=== PATIENT | male | born 1935 | race Caucasian/White ===

== ENCOUNTER 2022-07-15 07:45 | Outpatient (REF) | payer MEDICARE, SELFPAY ==
--- NOTE | ~2022-07-15 | XR_ITS ---
EXAMINATION: XR HIP, LEFT CLINICAL INFORMATION: Left hip pain. COMPARISON: 12/07/2021 TECHNIQUE: AP pelvis and 2 views of the left hip. FINDINGS: AP film of the pelvis does not demonstrate any evidence of acute fracture or diastasis. There is narrowing of the hip joint spaces bilaterally, left greater than right, with prominent collar spurring. There is subchondral cyst formation without definite femoral head collapse but with articular irregularity involving the left femoral head with some mild remodeling. There is significant degenerative disc disease with facet arthropathy seen at the L5-S1 level. There is degenerative disc disease seen at the L5-S1 level with facet arthropathy. Two views of the left hip demonstrate loss of the inferior joint space with marginal sclerosis, spurring, and some articular irregularity. No acute fracture is appreciated. Prominent collar spurring is seen. XR/XR hip LT w PEL1V IMPRESSION: Severe degenerative change of the left hip without significant change in joint space narrowing but with some mildly increased osteopenia from study of December 07, 2021.
== END 2022-07-15 07:46 | disposition home or self-care (01) ==
LOC: HO.HOSX 07:45
PROVIDERS: Visit Provider Physician Assistant
DX: M16.12 Unilateral primary osteoarthritis, left hip (principal)
CPT/HCPCS: 73502; 99202

== ENCOUNTER → 2022-09-12 15:09 | Outpatient (BNVA) | payer MEDICARE, SELFPAY | PROVIDERS: PCP Internal Medicine; Visit Provider Orthopaedic Surgery | DX: Z13.89 Encounter for screening for other disorder (principal) ==

== ENCOUNTER → 2022-09-15 12:49 | Outpatient (BNVA) | payer MEDICARE, SELFPAY | PROVIDERS: Visit Provider Orthopaedic Surgery | DX: M16.12 Unilateral primary osteoarthritis, left hip (principal) | CPT/HCPCS: 99212 ==

== ENCOUNTER → 2022-12-01 11:17 | Outpatient (BNVA) | payer MEDICARE, SELFPAY | PROVIDERS: PCP Internal Medicine; Visit Provider Physician Assistant | DX: Z01.818 Encounter for other preprocedural examination (principal); M16.12 Unilateral primary osteoarthritis, left hip | CPT/HCPCS: 99212 ==

== ENCOUNTER → 2023-01-12 09:50 | Outpatient (BNVA) | payer MEDICARE, SELFPAY | PROVIDERS: PCP Internal Medicine; Visit Provider Physician Assistant | DX: M16.12 Unilateral primary osteoarthritis, left hip (principal) | CPT/HCPCS: 99212 ==

== ENCOUNTER 2023-01-17 09:57 | Inpatient (IN) | payer MEDICARE, SELFPAY ==
[2022-11-28 12:03] VITALS: BMI 26.2
[2022-11-28 12:11] VITALS: BP 125/58; PULSE 58; RESP 16; O2SAT 99
--- NOTE | 2022-11-28 12:20 | P.CONAN_ITS ---
HPI - Anesthesia Eval Consult details Narrative: 87yo M for Left Hip Total Replacement 12/14/22 Pending: Labs, ECHO, EKG PCP cleared (Echo updated) [facility] Active Problems Active Problems: All Active Problems (Updated 11/28/22 @ 12:16 by Ophelia Swift, RN) Osteoarthritis of left hip (Acute) Past Medical History Medical History (Updated 12/01/22 @ 12:07 by Ophelia Swift RN) Ambulates with cane Bilateral tinnitus Dental crowns present Glaucoma History of basal cell cancer Murmur DENISSE (obstructive sleep apnea) PND (post-nasal drip) Family History Family history of problems with anesthesia: No Surgical History Surgical History H/O hernia repair History of nasal surgery Hx of colonoscopy S/P left knee arthroscopy History of Problems with Anesthesia: No Social History Social History Household Members Other:: adult grandson Are you a primary resident care supervisor to a significant other at home: No Do you presently have visiting nurse or other home services: No Tobacco use type: Cigarette Narrative Narrative: No recent illness No CP/SOB within limits of activity. Fatigue. Meds Allergies Allergy/AdvReac Type Severity Reaction Status Date / Time No Known Allergies Allergy Verified 12/01/22 11:24 Home Medications Medication Instructions Recorded Confirmed Last Taken Type timolol maleate 0.5 % eye drops 1 drp ophthalmic (eye) QAM 07/15/22 12/01/22 Unknown History Exam Exam Date and Time: November 28, 2022 1220 Height,Weight and Vital Signs: Height 5 ft 11 in Weight 85.275 kg Last Vital Signs Pulse 58 11/28/22 12:11 Resp 16 11/28/22 12:11 BP 125/58 L 11/28/22 12:11 Pulse Ox 99 11/28/22 12:11 O2 Del Method Room Air 11/28/22 12:11 Airway Mallampati Class: I TM Dist: >3cm Neck ROM: Full Loose/Missing/Broken Teeth: Yes (All pulled except 6 x crowns lower front) Heart: RRR +M Lungs: CTAB Assessment and Plan Assessment Anesthesia Assessment: Anesthesia Plan Discussed and PAT Visit Final Anesthetic Review Family History of Problems with Anesthesia: No History of Problems with Anesthesia: No
[2022-11-28 15:56] LABS: MRSA Nasal PCR NEGATIVE (Negative); SA Nasal PCR POSITIVE (Negative)
--- NOTE | 2023-01-16 08:55 | P.CONAN_ITS ---
Documented by User: Marga Portillo NP 01/16/23 09:02 HPI - Anesthesia Eval Consult details Narrative: 87yo M for Left Hip Total Replacement PCP cleared [facility] Active Problems Active Problems: All Active Problems (Updated 12/01/22 @ 12:07 by Ophelia Swift, RN) Osteoarthritis of left hip (Acute) Past Medical History Medical History (Updated 01/17/23 @ 10:06 by Tammy Marion, JCARLOS) Ambulates with cane Bilateral tinnitus Dental crowns present Glaucoma History of basal cell cancer History of diet-controlled diabetes Murmur DENISSE (obstructive sleep apnea) PND (post-nasal drip) Family History Family history of problems with anesthesia: No Surgical History Surgical History H/O hernia repair History of nasal surgery Hx of colonoscopy S/P left knee arthroscopy History of Problems with Anesthesia: No Social History Social History Household Members Other:: adult grandson Are you a primary neonatal critical care nurse to a significant other at home: No Do you presently have visiting nurse or other home services: No Tobacco use type: Cigarette Use of substances other than those prescribed or required for medical reasons: No Have you been hit, kicked, punched, or otherwise hurt by someone within the past year? If so, by whom?: No Are you DNR?: No Advance Directives: No Advance Directives Information Provided: Yes Advance Directives on File: No Recently lost weight without trying: No Nutrition Risks: Surgical patient >75years Meds Allergies Allergy/AdvReac Type Severity Reaction Status Date / Time No Known Allergies Allergy Verified 01/12/23 09:54 Home Medications Medication Instructions Recorded Confirmed Last Taken Type timolol maleate 0.5 % eye drops 1 drp ophthalmic (eye) QAM 07/15/22 12/01/22 01/17/23 History Exam Exam Date and Time: January 16, 2023 0855 Height,Weight and Vital Signs: Height 5 ft 11 in Weight 85.275 kg Last Vital Signs Pulse 58 11/28/22 12:11 Resp 16 11/28/22 12:11 BP 125/58 L 11/28/22 12:11 Pulse Ox 99 11/28/22 12:11 O2 Del Method Room Air 11/28/22 12:11 Pertinent Lab Results Pertinent Lab Results: Laboratory Tests 11/28/22 12/06/22 12:30 Unknown Nasal Screen MRSA (PCR) NEGATIVE Nasal S. aureus Screen POSITIVE A Nasal MRSA/S.aureus Interp SEE NOTE Blood Type Cancelled Antibody Screen Cancelled CBC and BMP from outside facility 10/2022 WNL Narrative Narrative: EKG 10/2022 SB @ 55 ECHO 11/2022 1. LV size nml 2. LV wall thickness nml 3. LV systolic function is nml with EF 60-65% 4. Indeterminate diastolic function 5. No evidence of wall motion abnormalities 6. LA moderately dilated 7. RV systolic function at low end of nml 8. Moderate AR 9. Moderate . REESE 1.0cm2 10. Mild-mod MR 11. No pulmo htn Nuc stress 11/2022 1. Negative EKG responsee to pharm stress 2. Myocardial perfusion imaging is nml with no evidence of fixed or reversible perfusion defects. 3. Nml wall thickening and wall motion. Nml LV function with a resting LVEF of 50% 4. No evidence of ischemic dilation Assessment and Plan Assessment Anesthesia Assessment: Chart Reviewed Final Anesthetic Review Family History of Problems with Anesthesia: No History of Problems with Anesthesia: No Documented by User: Sandy Rabago MD 01/17/23 11:27 [facility] Past Medical History Medical History (Updated 01/17/23 @ 10:06 by Tammy Marion, JCARLOS) Ambulates with cane Bilateral tinnitus Dental crowns present Glaucoma History of basal cell cancer History of diet-controlled diabetes Murmur DENISSE (obstructive sleep apnea) PND (post-nasal drip) Surgical History Surgical History H/O hernia repair History of nasal surgery Hx of colonoscopy S/P left knee arthroscopy Social History Social History Household Members Other:: adult grandson Are you a primary neonatal critical care nurse to a significant other at home: No Do you presently have visiting nurse or other home services: No Tobacco use type: Cigarette Use of substances other than those prescribed or required for medical reasons: No Have you been hit, kicked, punched, or otherwise hurt by someone within the past year? If so, by whom?: No Are you DNR?: No Advance Directives: No Advance Directives Information Provided: Yes Advance Directives on File: No Recently lost weight without trying: No Nutrition Risks: Surgical patient >75years Meds Allergies Allergy/AdvReac Type Severity Reaction Status Date / Time No Known Allergies Allergy Verified 01/12/23 09:54 Home Medications Medication Instructions Recorded Confirmed Last Taken Type timolol maleate 0.5 % eye drops 1 drp ophthalmic (eye) QAM 07/15/22 12/01/22 01/17/23 History Exam Airway Mallampati Class: II TM Dist: >3cm Neck ROM: Full Denture: Upper Partial: Lower Heart: rrr Lungs: cta Assessment and Plan Assessment Anesthesia Assessment: Anesthesia Plan Discussed Final Anesthetic Review NPO: Yes ASA Class: III (aS valve area 1 cm square ) Final Preanesthetic Review: No Changes in Pt Med Stat, Meds/Allgs Chart Reviewed, Consent Obtained/Reviewed and Anes Risks/Benef Reviewed Patient Risk: Intermediate Procedure Risk: Intermediate Anesthetic Plan Anesthetic Plan: GA Disposition: Standard PACU
[2023-01-17] VITALS (16 sets, daily range): BP systolic 134–169; BP diastolic 62–98; PULSE 54–80; RESP 16–20; TEMP 36.1–36.6; O2SAT 96–100; BMI 27.1
--- NOTE | ~2023-01-17 | XR_ITS ---
EXAMINATION: XR PELVIS CLINICAL INFORMATION: Left hip replacement COMPARISON: Previous x-ray June 2022 TECHNIQUE: AP view of the pelvis. FINDINGS: There is a new left hip replacement in satisfactory position. No fracture or dislocation. Postoperative changes to the soft tissues. Severe arthritis of the right hip joint. XR/XR pelvis 1-2V IMPRESSION: Satisfactory appearance of left hip replacement.
[2023-01-17] MEDS: oxyCODONE HCl ER 10 MG TAB.ER.12H PO (10:10)
[2023-01-17] MEDS: Lactated Ringers 1,000 ML 100 ML IVCONT ×2 (10:11→16:48)
--- NOTE | 2023-01-17 11:45 | MHC.SHP ---
Pre-Procedural Eval Section A Date of Service: 01/17/23 The patient is an INPATIENT: No Changes since office visit: No Cold of Flu in the past 2 weeks, No New Medical Problems, No Changes in Medication and No Patient answered all questions The History & Physical has been completed within 30 days and I have reviewed it.: Yes Section B Chief Complaint: LT JENA Allergies: Allergies Allergy/AdvReac Type Severity Reaction Status Date / Time No Known Allergies Allergy Verified 01/12/23 09:54 Plan I have reviewed the history and physical and performed a pertinent physical examination on my patient. No changes have occurred unless specified. Time Spent With Patient Time: Total time managing care of this patient today ____ minutes.
--- NOTE | 2023-01-17 13:52 | P.BOP_ITS ---
Brief Operative Note Date of Service: 01/17/23 Pre-op diagnosis: left hip OA Procedure: Left JENA Implants: Asad Trident2 56/ lipped liner [place] AccoladeC #[id number]/+0/36 ceramic Surgeon: Trung Pineda MD Anesthesia: GETA Was an Aviation Medicine Specialist used for this Procedure?: Yes Aviation Medicine Specialist: Nevin Diaz Estimated blood loss (mL): 200 IV fluids (mL): 1,000 Pathology: other Condition: stable Disposition: PACU
[2023-01-17] MEDS: fentaNYL citrate/PF 100 MCG/2 ML VIAL 25 MCG IVPUSH ×4 (14:15→14:40)
[2023-01-17] MEDS: oxyCODONE HCl Immed Release 5 MG TABLET PO ×2 (14:16→20:09)
[2023-01-17] MEDS: HYDROmorphone HCl 0.5 MG/0.5 ML SYRINGE 0.25 MG IVPUSH ×3 (15:00→23:48)
[2023-01-17] MEDS: 0.9 % Sodium Chloride Flush 3 ML SYRINGE IVFLUSH (16:49)
--- NOTE | 2023-01-17 16:58 | HO.PM.IMCN ---
History of Present Illness Data of Consult Service Date: 01/17/23 Primary Care Provider: Jose Baker MD HPI 87 year old man admitted by Orthopedic surgery and is status post left total hip arthroplasty. Surgery was unremarkable. Patient has very minimal amount of pain at this time. He has been able to drink fluids without any nausea or vomiting. He is currently resting comfortably in bed. Review of Systems Review of Systems: Denies any recent fever chills or decrease in appetite respiratory denies any shortness of breath coverage production cardiovascular denies chest pain gastrointestinal denies any dysphagia abdominal pain nausea vomiting or diarrhea genitourinary denies any dysuria frequency or hematuria musculoskeletal pain to left hip neuropsych denies any weakness or seizures all other systems reviewed are negative [facility] Medical History (Updated 01/20/23 @ 00:02 by Chuck Wasserman) Glaucoma History of basal cell cancer History of diet-controlled diabetes Murmur DENISSE (obstructive sleep apnea) Osteoarthritis of left hip PND (post-nasal drip) Surgical History H/O hernia repair History of nasal surgery Hx of colonoscopy S/P left knee arthroscopy Social History Household Members: Family Household Members Other:: adult grandson Housing: House Are you a primary furnace caretaker to a significant other at home: No Do you presently have visiting nurse or other home services: Yes Patient Tobacco Use Status: Former Tobacco user Quit Date: 04/1988 Tobacco use type: Cigarette e-Cigarette/Vaping Use: Never Used Second Hand Smoke Exposure: No service: No Meds Allergies Allergy/AdvReac Type Severity Reaction Status Date / Time No Known Allergies Allergy Verified 01/12/23 09:54 Active Medications: Current Medications Acetaminophen (Acetaminophen 325 Mg Tablet) 650 mg PO Q6H PRN PRN Reason: Pain, Mild (Pain Scale 1-3) Aspirin (Aspirin 325 Mg Tablet) 325 mg PO BID TRAVIS Celecoxib (Celecoxib 200 Mg Capsule) 200 mg PO BID TRAVIS Docusate Sodium (Docusate Sodium 100 Mg Capsule) 100 mg PO BID TRAVIS Hydromorphone HCl (Hydromorphone Hcl 0.5 Mg/0.5 Ml Syringe) 0.25 mg IVPUSH Q5M PRN; Protocol PRN Reason: Pain, Severe (Pain Scale 7-10) Last Admin: 01/17/23 15:15 Dose: 0.25 mg Hydromorphone HCl (Hydromorphone Hcl 0.5 Mg/0.5 Ml Syringe) 0.25 mg IVPUSH Q4H PRN; Protocol PRN Reason: Pain, Severe (Pain Scale 7-10) Lactated Ringer's (Lr) 1,000 mls @ 100 mls/hr IVCONT .Q10H [facility] Stop: 01/18/23 14:05 Last Admin: 01/17/23 16:48 Dose: 100 mls/hr Cefazolin Sodium/Dextrose (Ancef) 2 gm in 50 mls @ 100 mls/hr IV POSTOP ONE Stop: 01/17/23 18:29 Ondansetron HCl (Ondansetron Hcl 4 Mg/2 Ml Vial) 4 mg IVPUSH Q8H PRN PRN Reason: Nausea and Vomiting Oxycodone HCl (Oxycodone Hcl Immed Release 5 Mg Tablet) 5 mg PO Q4H PRN PRN Reason: Pain, Moderate(Pain Scale 4-6) Sodium Chloride (0.9 % Sodium Chloride Flush 3 Ml Syringe) [facility] Last Admin: 01/17/23 16:49 Dose: 3 ml Home Medications Medication Instructions Recorded Confirmed Last Taken Type timolol maleate 0.5 % eye drops 1 drp ophthalmic (eye) QA 07/15/22 12/01/22 01/17/23 History Physical Exam Vital Signs and Narrative: Vital Signs: Last Vital Signs Temp 97 F 01/17/23 15:39 Pulse 69 01/17/23 15:39 Resp 16 01/17/23 15:39 BP 160/73 H 01/17/23 15:39 Pulse Ox 99 01/17/23 15:39 O2 Del Method Nasal Cannula 01/17/23 15:39 O2 Flow Rate 2 01/17/23 15:39 BMI result Body Mass Index 27.1 Appearing in no acute distress head is normocephalic atraumatic eyes pupils are PERRLA sclera is anicteric mouth throat mucous membranes are intact and moist neck is supple no lymphadenopathy, no JVD noted lung sounds are clear to auscultation heart regular rate rhythm, clear S1, S2 positive bowel sounds, abdomen is soft, nontender neuro patient is alert x3, no focal deficits Left hip surgical dressing intact, wound not visualized Results Labs 01/19/23 05:10 01/19/23 05:10 Labs: Laboratory Results - last 24 hr 01/17/23 10:09 Blood Type AB Positive Antibody Screen NEGATIVE Imaging Radiologist's Impressions: Impressions Pelvis X-Ray 01/17/23 16:28 IMPRESSION: Satisfactory appearance of left hip replacement. Assessment and Plan (1) Osteoarthritis of left hip: Status: Inactive Plan 87 year old man status post left total hip arthroplasty Left total hip arthroplasty Management as per surgical team Pain management Glaucoma Timolol eyedrops Diet-controlled diabetes ADA diet DVT prophylaxis as per surgical team Time Spent With Patient Time: Total time managing care of this patient today ____ minutes.
[2023-01-17] MEDS: ceFAZolin Sodium/Dextrose,Iso 2 GM/50 ML PIGGYBACK IV (17:31)
[2023-01-17] MEDS: Acetaminophen 325 MG TABLET 650 MG PO (18:03)
[2023-01-17] MEDS: Docusate Sodium 100 MG CAPSULE PO (20:10)
[2023-01-17] MEDS: Celecoxib 200 MG CAPSULE PO (20:10)
[2023-01-18] MEDS: Lactated Ringers 1,000 ML 100 ML IVCONT ×2 (03:05→14:56)
[2023-01-18 03:37] VITALS: BP 119/60; PULSE 68; RESP 16; TEMP 36.6; O2SAT 94
[2023-01-18 05:39] LABS: MANUAL DIFF FLAG NO
[2023-01-18 05:43] LABS: Basophils Percent Auto 0.1 % (0-2); Eosinophils Absolute Auto 0.1 X10*3/uL (0.0-0.4); Eosinophils Percent Auto 1.1 % (0-4); Hematocrit 29.7 % (42.0-52.0); Hemoglobin 9.7 g/dl (14.0-18.0); Imm Gran Abs Auto 0.04 X10*3/uL (0.00-0.03); Imm Gran Pct Auto 0.5 % (0.0-0.4); Mean Corpuscular HGB Conc 32.7 g/dl (31.0-36.0); Mean Corpuscular Hemoglobin 30.8 pg (27.0-33.0); Mean Corpuscular Volume 94.3 fL (80.0-98.0); Mean Platelet Volume 9.6 fL (9.4-12.4); Monocytes Absolute Auto 0.8 X10*3/uL (0.1-1.2); Monocytes Percent Auto 8.6 % (2-11); Neutrophils Absolute Auto 6.9 x10*3/uL (2.0-8.3); Neutrophils Percent Auto 78.7 % (45-73); Platelet Count 145 X10*3/uL (160-400); Red Blood Count 3.15 X10*6/uL (4.60-5.80); Red Cell Distribution Width 13.5 % (11.0-16.0); White Blood Count 8.7 X10*3/uL (4.8-10.8)
[2023-01-18 05:57] LABS: Anion Gap 11 (12-20); Blood Urea Nitrogen 14 mg/dL (9-16); Calcium 8.9 mg/dL (8.4-10.2); Carbon Dioxide 28 mmol/L (22-29); Chloride 103 mmol/L (96-108); Creatinine Clr Calc Pharmacy 73.9; Estimated Glomerular Filt Rate > 60; Glucose Fasting 124 mg/dL (60-99); Potassium 5.2 mmol/L (3.3-5.1); Sodium 137 mmol/L (135-145)
--- NOTE | 2023-01-18 07:26 | PHA.MEDREC ---
Pharmacy Consult ? Medication Reconciliation Pharmacy has reviewed the medication reconciliation done by RN.
--- NOTE | 2023-01-18 07:33 | PM.PNORT ---
Subjective Subjective Date of Service: 01/18/23 Interval history: POD1 s/p LTHA. No overnight events. Pain is well managed. No additional complaints. Resting in bed comfortably. Physical Exam Vital Signs: Vital Signs: Last Vital Signs Temp 97.8 F 01/18/23 03:37 Pulse 68 01/18/23 03:37 Resp 16 01/18/23 03:37 BP 119/60 01/18/23 03:37 Pulse Ox 94 01/18/23 03:37 O2 Del Method Room Air 01/18/23 03:37 O2 Flow Rate 2 01/17/23 15:39 BMI result Body Mass Index 27.1 Const: General: cooperative, healthy appearing and no acute distress Resp: Effort & Inspection: normal respiratory effort and able to speak in complete sentences Cardio: Rate: regular rate Peripheral pulses: Peripheral pulses 2+ throughout GI: Palpation (GI): Soft to palpation Skin: Lesions: no lesions Rashes: no rashes Extrem: Other: Left hip Aquacel is c/d/i. Able to dorsiflex and plantarflex. NVI. Procedures Date of Service Date of Service: 01/18/23 Progress Note: A&P Assessment and plan (1) Status post total hip replacement, left: Status: Acute Plan Continue pain mgmnt Begin ASA for dvt ppx begin PT for LTHA -WBAT Dispo planning-Pending PT eval, pain mgmnt Time Spent With Patient Time: Total time managing care of this patient today ____ minutes. Quality Stroke Does the patient have a stroke diagnosis?: No VTE Prior VTE?: No VTE Risk Level:: Medical - moderate - high VTE Device Contraindication: N/A - Device Ordered VTE Drug Contraindication: N/A - Med Ordered
[2023-01-18 07:52] VITALS: BP 131/92; PULSE 69; RESP 16; TEMP 36.6; O2SAT 95
[2023-01-18] MEDS: Celecoxib 200 MG CAPSULE PO ×2 (08:30→19:41)
[2023-01-18] MEDS: 0.9 % Sodium Chloride Flush 3 ML SYRINGE IVFLUSH (08:31)
[2023-01-18] MEDS: HYDROmorphone HCl 0.5 MG/0.5 ML SYRINGE 0.25 MG IVPUSH ×3 (08:36→17:20)
[2023-01-18] MEDS: Docusate Sodium 100 MG CAPSULE PO ×2 (09:21→19:41)
--- NOTE | 2023-01-18 10:21 | MHC.CM.PN ---
pts grandson lives with pt pt to go home with [facility]ns for home pt has own ride
[2023-01-18] MEDS: oxyCODONE HCl Immed Release 5 MG TABLET PO ×2 (11:18→19:41)
[2023-01-18 12:39] VITALS: BP 108/55; PULSE 79; RESP 18; TEMP 37.2; O2SAT 94
[2023-01-18] MEDS: Aspirin 325 MG TABLET PO ×2 (12:47→19:41)
[2023-01-18 14:55] VITALS: O2SAT 94
--- NOTE | 2023-01-18 15:18 | HO.POSTANES ---
Post Anesthesia Evaluation Post Anesthesia Evaluation Date of Service: 01/18/23 Vital Signs: Vital Signs Temp Pulse Resp BP Pulse Ox O2 Del Method 01/18/23 12:39 99.0 F 79 18 108/55 L 94 Room Air 01/18/23 07:52 97.8 F 69 16 131/92 H 95 Room Air 01/18/23 03:37 97.8 F 68 16 119/60 94 Room Air Anesthesia: General Mental Status: Awake Pain Control: Satisfactory Nausea/Vomiting: None Hydration: Adequate Anesthesia-Related Issues: No Anes. Related Issues
[2023-01-18 15:29] VITALS: BP 115/58; PULSE 74; RESP 18; TEMP 36.8; O2SAT 94
[2023-01-18 19:37] VITALS: BP 133/61; PULSE 98; RESP 18; TEMP 37.2; O2SAT 93
[2023-01-18] MEDS: Acetaminophen 325 MG TABLET 650 MG PO (19:41)
[2023-01-19] VITALS (10 sets, daily range): BP systolic 114–160; BP diastolic 53–70; PULSE 70–87; RESP 16–20; TEMP 36–37.1; O2SAT 94–97
[2023-01-19] MEDS: Acetaminophen 325 MG TABLET 650 MG PO (04:13)
[2023-01-19] MEDS: oxyCODONE HCl Immed Release 5 MG TABLET PO ×3 (04:14→17:50)
[2023-01-19 05:37] LABS: MANUAL DIFF FLAG NO
[2023-01-19 05:41] LABS: Basophils Percent Auto 0.2 % (0-2); Eosinophils Absolute Auto 0.4 X10*3/uL (0.0-0.4); Eosinophils Percent Auto 4.1 % (0-4); Hemoglobin 9.4 g/dl (14.0-18.0); Imm Gran Abs Auto 0.04 X10*3/uL (0.00-0.03); Imm Gran Pct Auto 0.5 % (0.0-0.4); Lymphocytes Absolute Auto 0.8 X10*3/uL (1.2-4.9); Lymphocytes Percent Auto 8.8 % (20-40); Mean Corpuscular HGB Conc 33.6 g/dl (31.0-36.0); Mean Corpuscular Hemoglobin 31.4 pg (27.0-33.0); Mean Corpuscular Volume 93.6 fL (80.0-98.0); Mean Platelet Volume 9.5 fL (9.4-12.4); Monocytes Absolute Auto 0.6 X10*3/uL (0.1-1.2); Neutrophils Absolute Auto 6.9 x10*3/uL (2.0-8.3); Neutrophils Percent Auto 79.4 % (45-73); Platelet Count 123 X10*3/uL (160-400); Red Blood Count 2.99 X10*6/uL (4.60-5.80); Red Cell Distribution Width 13.4 % (11.0-16.0); White Blood Count 8.6 X10*3/uL (4.8-10.8)
[2023-01-19 05:55] LABS: Anion Gap 11 (12-20); Blood Urea Nitrogen 13 mg/dL (9-16); Carbon Dioxide 25 mmol/L (22-29); Chloride 104 mmol/L (96-108); Creatinine Clr Calc Pharmacy 73.9; Estimated Glomerular Filt Rate > 60; Glucose Fasting 138 mg/dL (60-99); Potassium 4.4 mmol/L (3.3-5.1); Sodium 136 mmol/L (135-145)
[2023-01-19] MEDS: Aspirin 325 MG TABLET PO (07:50)
[2023-01-19] MEDS: 0.9 % Sodium Chloride Flush 3 ML SYRINGE IVFLUSH (07:50)
[2023-01-19] MEDS: Celecoxib 200 MG CAPSULE PO (07:50)
[2023-01-19] MEDS: Docusate Sodium 100 MG CAPSULE PO (07:50)
--- NOTE | 2023-01-19 08:43 | PM.DS ---
DS: Providers Provider Date of Service: 01/19/23 Date of admission: 01/17/23 09:57 Primary care physician: Jose Baker MD Consults: 01/17/23 16:08 Consult to Hospitalist Routine Comment: Consulting Provider: Hospitalist Reason For Exam: medical management DS: Diagnosis Discharge Diagnosis (1) Status post total hip replacement, left: Status: Acute DS: Summary Hospital Course Hospital Course: The patient underwent a successful left total hip arthroplasty on 01/17/23, was transferred to PACU and then to the floor to recover. During their stay, their vitals were stable, afebrile at 97.8 . Labs were unremarkable, H/H 9.4/28.0, but because he did have a 2 point drop he was transfused with 2 units of PRBCs. POD 1 he was started on ASA for DVT ppx, they also received Physical Therapy services twice a day. Physical therapy should include gait training, ROM to tolerance and quad strength. He is WBAT. Prior to discharge, his dressing was changed, incision clean dry and intact, new Aquacel dressing applied. The Aquacel dressing should remain intact and dry at all times. Any concerns with the dressing, please contact orthopedic office. No showering. The plan is to be discharged home with vna Time Spent with Patient Time attestation: Total time managing care of this patient today ____ minutes. Discharge coordination time: Less than 30 minutes Quality: Safe Use of Opioids Does Pt have an Active Cancer Diagnosis on the Problem List?: No Quality: Stroke Does the patient have a stroke diagnosis?: No Physical Exam Vital Signs: Vital Signs: Last Vital Signs Temp 97.8 F 01/19/23 07:35 Pulse 85 01/19/23 07:35 Resp 16 01/19/23 07:35 BP 141/65 H 01/19/23 07:35 Pulse Ox 96 01/19/23 07:35 O2 Del Method Room Air 01/19/23 07:35 O2 Flow Rate 2 01/17/23 15:39 BMI result Body Mass Index 27.1 Const: General: healthy appearing and no acute distress Resp: Effort & Inspection: normal respiratory effort and able to speak in complete sentences Cardio: Rate: regular rate Peripheral pulses: Peripheral pulses 2+ throughout GI: Palpation (GI): Soft to palpation Skin: Lesions: no lesions Rashes: no rashes Extrem: Other: Left hip Aquacel is c/d/i. Able to dorsiflex and plantarflex. NVI. DS: Data Data Completed and Pending Pending studies at discharge: Pending at discharge 01/17/23 13:39 Surgical [PTH] Routine Labs on day of discharge: Laboratory Results - last 24 hr 01/19/23 01/19/23 05:10 05:10 WBC 8.6 RBC 2.99 L Hgb 9.4 L Hct 28.0 L MCV 93.6 MCH 31.4 MCHC 33.6 RDW 13.4 Plt Count 123 L MPV 9.5 Immature Gran % (Auto) 0.5 H Neut % (Auto) 79.4 H Lymph % (Auto) 8.8 L Moca % (Auto) 7.0 Eos % (Auto) 4.1 H Baso % (Auto) 0.2 Lymph # (Auto) 0.8 L Moca # (Auto) 0.6 Eos # (Auto) 0.4 Baso # (Auto) 0.0 Abs Immat Gran (auto) 0.04 H Absolute Neuts (auto) 6.9 Absolute Nucleated RBC 0.000 Nucleated RBC % (auto) 0.0 Sodium 136 Potassium 4.4 Chloride 104 Carbon Dioxide 25 Anion Gap 11 L BUN 13 Creatinine 0.75 Estim Creat Clear Calc 73.9 Estimated GFR > 60 Fasting Glucose 138 H Calcium 9.0 Discharge Plan Discharge Anticipated Discharge Date/Time: 01/19/23 10:00 Patient Disposition: Home Health Service Discharge Diagnosis: LT JENA Referrals: Tyler WILLISA [Outside] - 1 Week Nevin Diaz PA-C [Physician Play Reader] - 2 Weeks (02/02/23 3:45 [facility] Nevin Diaz PA-C[place] Discharge Medications: New celecoxib 200 mg Capsule 200 mg PO BID 30 Days Qty: 60 1RF acetaminophen 325 mg Tablet 650 mg PO Q6H PRN (Reason: Pain, Mild (Pain Scale 1-3)) 30 Days Qty: 240 0RF aspirin 325 mg Tablet 325 mg PO BID 42 Days Qty: 84 0RF docusate sodium 100 mg Capsule 100 mg PO BID 7 Days Qty: 14 0RF oxycodone 5 mg Tablet 5 mg PO Q4H PRN (Reason: Pain, Moderate(Pain Scale 4-6)) 7 Days Qty: 42 0RF Rx Instructions: Partial Fill upon patient request. Continued (DME) walker [facility] See Rx Instructions .MEDSUPPLY Qty: 1 0RF Rx Instructions: Folding Front wheeled walker (DME) Raised toilet seat See Rx Instructions .ROUTE .MEDSUPPLY Qty: 1 0RF Rx Instructions: As directed (DME) SHOWER CHAIR See Rx Instructions .ROUTE .MEDSUPPLY Qty: 1 0RF Rx Instructions: As directed timolol maleate 0.5 % drops 1 drp ophthalmic (eye) QAM Discharge Orders: Discharge Order (Routine); Ordered 01/19/23 Ordered By: Nevin Diaz Diet: Regular diet Activity on Discharge: Use cane or walker Stand Alone Forms: Patient Portal Discharge page Care Plan Goals: Restore function of joint Health Concerns: None Plan of Treatment: Physical Therapy Pain management DVT prophylaxis Assessment: Physical Therapy for Total hip arthroplasty: wbat, posterior precautions, gait training, ROM, strength Limit stair climbing No showering, no tub bath-keep dressing clean, dry and intact No driving x6 weeks Continue Aspirin twice a day x 6 weeks Follow up [place] [facility] [place]: --you will also have your first out patient PT eval on the day of your post op appt-so please plan on being in the office that day for an extended period of time.
--- NOTE | 2023-01-19 15:08 | MHC.CM.PN ---
PT WILL DC HOME TODAY WITH [facility]
--- NOTE | 2023-01-24 07:42 | P.OP_ITS ---
Operative Note Operative Note Date of Service: 01/17/23 Narrative: Date of Service: 01/17/23 Pre-op diagnosis: left hip OA Procedure: Left JENA Implants: Asad Trident2 56/ lipped liner Asad AccoladeC #6 127/+0/36 ceramic Surgeon: Trung Pineda MD Anesthesia: GETA Was an High School Special Education Teacher used for this Procedure?: Yes [employer] Special Education Teacher: Nevin Diaz Estimated blood loss (mL): 200 IV fluids (mL): 1,000 Pathology: other Condition: stable Disposition: PACU Procedure in detail: Patient was brought into the operating room and placed in the right lateral decubitus position. All bony prominences were well padded and the limb was prepped and draped in standard sterile fashion. A time-out was called to identify proper site procedure proper surgeon IV antibiotics and 1 g of transaxemic acid were administered. I began by making a curvilinear incision over the posterolateral aspect of the greater trochanter. Dissection was taken down to the tensor fascia which was incised in line with the incision and a Charnley retractor was placed. Cautery was used to maintain hemostasis. The hip was internally rotated and the external rotators were identified. The vessels were cauterized and a full-thickness capsular/external rotator layer was developed starting just proximal to the piriformis. This layer was tagged and a dull Hohmann retractor was placed underneath the neck in the hip was dislocated. A neck cut was made 1 cm proximal to the lesser trochanter and the head and neck were removed and measured 52mm on the back table. I then removed the labrum and cauterized the fovea. I started with a 44 reamer and medialized to the inner table. I sequentially reamed up to a size 56 and impacted a 56mm cup at 45 degrees of inclination and 25 degrees of version. I then placed a 20 deg posterior lipped liner and turned my attention to the femur. I identified the piriformis insertion and used this as a starting point for my kira cutter. The medius tendon was protected with a Hibs retractor. A Charnley awl was inserted in the canal and a curved curette used to remove the lateral bone. I irrigated copiously. I then sequentially broached in the patient's natural version to a size 10 and at that point the decision was made to cement given the capacious femoral canal. I was satisfied with the length using the 10 127 deg so I selected a #6/127 Accolade C. 4th generation cementation technique was used and the implant was cemented in place. I was satisfied with the stability using a +0 36 trial. I removed all extraneous instrumentation and copiously irrigated. I placed my final femoral implant and again took the hip through range of motion and was satisfied with the stability and length. The final +0 implant was impacted in place and the hip reduced. I then irrigated for 3 minutes with iodine and placed 1 g of local transaxemic acid. I performed a capsular closure with 2.0 fiberwire, Vito's fascia with 0 Vicryl, subcuticular with 2-0 Vicryl and the skin with kenya. Patient was placed into a sterile dressing. Patient was extubated brought to the recovery room in stable condition. There were no known complications.
--- NOTE | 2023-01-30 16:06 | W.MHC.F2F ---
Service Date Service Date: 01/30/23 Encounter Date of encounter: 01/19/23 Reasons for Services Signs and symptoms assessed: left hip pain, weakness, difficulty with ambulation Reason for physical therapy: home safety and mobility, therapeutic exercises, restore joint function, gait/transfer training, ADL training and energy conservation Reason for occupational therapy: home safety and mobility, therapeutic exercises, restore joint function, gait/transfer training, ADL training and energy conservation Homebound: Leaving the home is medically contraindicated at this time without the asist of a device and/or another person due th the listed conditions above and below. Reason homebound: shortness of breath with minimal effort, pain with ambulation, pain with transfers and unable to drive Certification: Based on the above findings, I certify that this patient is confined to the home and needs intermittent care home care, physical therapy and/or speech therapy, or continues to need occupational therapy. The patient is under my care, and I have initiated the establishment of the plan of care. The patient will be followed by a physician who will periodically review the plan of care. Time Spent With Patient Time: Total time managing care of this patient today ____ minutes.
== END 2023-01-19 18:18 | disposition home health service (06) | DRG 470 ==
LOC: HO.SSSA 09:58 → HO.S3 14:52
PROVIDERS: Physician Assistant; Admitting Provider Orthopaedic Surgery; PCP Internal Medicine; Responsible Provider Internal Medicine; Visit Provider Orthopaedic Surgery
PROC: 0SRB039 Replacement of Left Hip Joint with Ceramic Synthetic Substitute, Cemented, Open Approach (ICD-10-PCS; CPT 27130; principal; 2023-01-17 11:50)
DX: M16.12 Unilateral primary osteoarthritis, left hip (principal); G47.33 Obstructive sleep apnea (adult) (pediatric); Z87.891 Personal history of nicotine dependence; Z79.899 Other long term (current) drug therapy
CPT/HCPCS: 36415; 72170; 80048; 85025; 86850; 86900; 86901; 86923; 87640; 87641; 88304; 88311; 97110; 97116; 97162; 97166; 97530; 97535; C1713; C1776; J0131; J0690; J1100; J1170; J2370; J2405; J2795; J3010; P9016

== ENCOUNTER → 2023-02-02 14:50 | Outpatient (BNVA) | payer MEDICARE, SELFPAY | PROVIDERS: PCP Internal Medicine; Visit Provider Physician Assistant ==

== ENCOUNTER 2023-03-06 10:09 | Outpatient (AMB) | payer MEDICARE, SELFPAY ==
--- NOTE | 2023-03-06 10:11 | A.OFFVIS_ITS ---
Intake Intake Visit Reasons: PO-LT JENA 01/18/23 NE Intake Note: Syd 87 yr old male presents today for his P/O visit for his left JENA from 01/18/23.?States he is attending outpatient P.T with improvement. Reports he feels sore after therapy but over all he is doing well. Allergies No Known Allergies Allergy (Verified 03/06/23 10:15) HPI PO-LT JENA 01/18/23 NE HPI Details 87-year-old male who returns to the office today for post-op left JENA, 01/18/[address] Pineda. He continues to work with outpatient physical therapy with benefits. He does experiences soreness after therapy but is doing well overall. He has no concerns today. [facility] Medical History Glaucoma History of basal cell cancer History of diet-controlled diabetes Murmur DENISSE (obstructive sleep apnea) Osteoarthritis of left hip PND (post-nasal drip) Surgical History H/O hernia repair History of nasal surgery Hx of colonoscopy S/P left knee arthroscopy Social History Household Members: Family Household Members Other:: adult grandson Housing: House Are you a primary continuum of care manager to a significant other at home: No Do you presently have visiting nurse or other home services: Yes Patient Tobacco Use Status: Former Tobacco user Quit Date: 04/1988 Tobacco use type: Cigarette e-Cigarette/Vaping Use: Never Used Second Hand Smoke Exposure: No service: No Review of Systems Const All systems reviewed & are unremarkable except as noted in HPI and below Physical Exam Extrem Other: Left hip: Normal to inspection. Incision is well healed. No erythema or drainage. He has no pain with ROM of hip or hip flexion. NVI. Assessment & Plan Assessment & Plan (1) Status post total hip replacement, left: Code(s): Z96.642 - Presence of left artificial hip joint Plan He will increase activity as tolerated working with physical therapy for core stabilization and glute strengthening. He will see us back in [address] Pineda and new x-rays, sooner if needed. Patient Instructions: Scribed for Nevin Diaz PA-C, by Javid Williamson, medical education specialist, on 03/06/2023 at 10:15 AM Nevin JUSTIN PA-C, have personally reviewed and agree with the information entered by the scribe. Coding Level of Care Code Global (84673) Diagnoses Status post total hip replacement, left Z96.642
== END 2023-03-06 10:33 | disposition home or self-care (01) ==
PROVIDERS: PCP Internal Medicine; Visit Provider Physician Assistant
DX: Z96.642 Presence of left artificial hip joint (principal)
CPT/HCPCS: 99024

== ENCOUNTER → 2023-03-06 10:09 | Outpatient (BNVA) | payer MEDICARE, SELFPAY | PROVIDERS: PCP Internal Medicine; Visit Provider Physician Assistant ==

== ENCOUNTER 2023-04-17 09:00 | Outpatient (REF) | payer MEDICARE, SELFPAY ==
--- NOTE | ~2023-04-17 | XR_ITS ---
EXAMINATION: XR PELVIS CLINICAL INFORMATION: Pain in unspecified hip COMPARISON: 01/17/2023 TECHNIQUE: 2 AP views of the pelvis. FINDINGS: The bones are diffusely demineralized. XR/XR pelvis 1-2V IMPRESSION: Redemonstration of left hip replacement in satisfactory position. Hardware appears intact. Severe degenerative changes in the right hip joint. Pelvic calcifications are likely vascular. IMPRESSION: Left hip replacement appears to be in satisfactory position.
== END 2023-04-17 09:01 | disposition home or self-care (01) ==
LOC: HO.HOSX 09:00
PROVIDERS: Visit Provider Orthopaedic Surgery
DX: Z47.1 Aftercare following joint replacement surgery (principal); Z96.642 Presence of left artificial hip joint
CPT/HCPCS: 72170

== ENCOUNTER 2023-04-17 09:49 | Outpatient (AMB) | payer MEDICARE, SELFPAY ==
--- NOTE | 2023-04-17 10:22 | A.OFFVIS_ITS ---
Intake Intake Visit Reasons: PO-LT JENA 01/18/23 NE Intake Note: The patient agreed to use of a medical driver during this encounter. Scribed for Dr. Trung Pineda by Veronique Mathis medical driver, on 04/17/2023 at 10:30 am EST. Velarde is an 87 year old male who presents today for a post operative appointment s/p Left JENA 01/18/23.Patient reports that he is doing well, he is doing well. He would like to know if he can lay on his side, drive and he would like to know his limitations with exercising. Allergies No Known Allergies Allergy (Verified 03/06/23 10:15) HPI HPI Comments History of Present Illness Details Syd is an 87 year old male who presents today for a post operative appointment. States he recently was in the hospital for surgery, bled out of his stomach but is feeling better. He has restricted motion in right hip due to arthritis. Interested in when he can start back activities. [facility] Medical History Glaucoma History of basal cell cancer History of diet-controlled diabetes Murmur DENISSE (obstructive sleep apnea) Osteoarthritis of left hip PND (post-nasal drip) Surgical History H/O hernia repair History of nasal surgery Hx of colonoscopy S/P left knee arthroscopy Social History Household Members: Family Household Members Other:: adult grandson Housing: House Are you a primary point of care technician to a significant other at home: No Do you presently have visiting nurse or other home services: Yes Patient Tobacco Use Status: Former Tobacco user Quit Date: 04/1988 Tobacco use type: Cigarette e-Cigarette/Vaping Use: Never Used Second Hand Smoke Exposure: No service: No Physical Exam Extrem Other: Inc c/d/i NO pain with hip ROM Results Reviewed Results Reviewed: I personally reviewed relevant radiographs. Left JENA in expected post operative position with no hardware complications or evidence of loosening Assessment & Plan Assessment & Plan (1) Status post total hip replacement, left: Code(s): Z96.642 - Presence of left artificial hip joint Plan: Doing well May resume daily activities as tolerated Dental prophylaxis discussed Orders: Orders XR pelvis 1-2V Today M25.559 - Pain in unspecified hip Patient Instructions: Advised pt can start stretching, yoga, light cardio and light lifting. PRN. Coding Level of Care Code Global (61055) Diagnoses Status post total hip replacement, left Z96.642
== END 2023-04-17 10:41 | disposition home or self-care (01) ==
PROVIDERS: PCP Internal Medicine; Visit Provider Orthopaedic Surgery
DX: Z96.642 Presence of left artificial hip joint (principal)
CPT/HCPCS: 99024

== ENCOUNTER 2024-01-12 07:28 | Outpatient (REF) | payer MEDICARE, SELFPAY ==
--- NOTE | ~2024-01-12 | XR_ITS ---
EXAMINATION: XR RIGHT KNEE XR LEFT KNEE CLINICAL INFORMATION: Osteoarthritis right knee. Pain in the left knee. COMPARISON: None available. TECHNIQUE: 3 views of each knee, including AP upright. FINDINGS: RIGHT KNEE: Genu varus. Severe joint space narrowing of the medial compartment with owyg-ov-gaxw appearance. Lateral compartment: Widening of the lateral compartment as a consequence of varus angulation or marginal osteophytes, indicative of at least mild osteoarthritis. Patellofemoral compartment: Prominent marginal osteophytes, indicative of buaz-ks-djioitbo osteoarthritis. Probable mild joint space narrowing. Small joint effusion. Proximal tibiofibular joint: Osteoarthritis with bridging osteophytes. Prominent arterial calcification. LEFT KNEE: Genu varus. Medial compartment severe joint space narrowing with a near rxot-go-ohst appearance. Lateral compartment: Marginal osteophytes indicative of at least mild osteoarthritis. Slight widening likely related to the genu varus. Patellofemoral compartment: Prominent marginal osteophytes and nonuniform joint space narrowing, indicative of moderate osteoarthritis. Trace joint effusion. Probable loose body measuring 4 mm medial to the medial femoral condyle, likely within the synovial recess. Alternatively this could reflect ossification within the medial collateral ligament related to an old ligament tear. Favor loose body. Arterial calcification. Proximal tibiofibular joint: Not well visualized due to overlapping bony structures. XR/XR knee LT 3V IMPRESSION: RIGHT KNEE: Advanced osteoarthritis with degenerative changes most prominent and severe in the medial compartment. Calcific atherosclerotic disease. LEFT KNEE: 1. Tricompartmental osteoarthritis with severe degenerative changes in the medial compartment. 2. Probable loose body. 3. Calcific atherosclerotic disease.
--- NOTE | ~2024-01-12 | XR_ITS ---
EXAMINATION: XR RIGHT KNEE XR LEFT KNEE CLINICAL INFORMATION: Osteoarthritis right knee. Pain in the left knee. COMPARISON: None available. TECHNIQUE: 3 views of each knee, including AP upright. FINDINGS: RIGHT KNEE: Genu varus. Severe joint space narrowing of the medial compartment with tbqy-fh-vpvm appearance. Lateral compartment: Widening of the lateral compartment as a consequence of varus angulation or marginal osteophytes, indicative of at least mild osteoarthritis. Patellofemoral compartment: Prominent marginal osteophytes, indicative of mbgi-ub-efpveuvm osteoarthritis. Probable mild joint space narrowing. Small joint effusion. Proximal tibiofibular joint: Osteoarthritis with bridging osteophytes. Prominent arterial calcification. LEFT KNEE: Genu varus. Medial compartment severe joint space narrowing with a near xjmg-yo-ptln appearance. Lateral compartment: Marginal osteophytes indicative of at least mild osteoarthritis. Slight widening likely related to the genu varus. Patellofemoral compartment: Prominent marginal osteophytes and nonuniform joint space narrowing, indicative of moderate osteoarthritis. Trace joint effusion. Probable loose body measuring 4 mm medial to the medial femoral condyle, likely within the synovial recess. Alternatively this could reflect ossification within the medial collateral ligament related to an old ligament tear. Favor loose body. Arterial calcification. Proximal tibiofibular joint: Not well visualized due to overlapping bony structures. XR/XR knee RT 3V IMPRESSION: RIGHT KNEE: Advanced osteoarthritis with degenerative changes most prominent and severe in the medial compartment. Calcific atherosclerotic disease. LEFT KNEE: 1. Tricompartmental osteoarthritis with severe degenerative changes in the medial compartment. 2. Probable loose body. 3. Calcific atherosclerotic disease.
== END 2024-01-12 07:29 | disposition home or self-care (01) ==
LOC: HO.HOSX 07:28
PROVIDERS: Visit Provider Physician Assistant
DX: M17.11 Unilateral primary osteoarthritis, right knee (principal); M25.562 Pain in left knee; G89.29 Other chronic pain
CPT/HCPCS: 20610; 73562; 99212; J1010

== ENCOUNTER 2024-01-12 09:47 | Outpatient (AMB) | payer MEDICARE, SELFPAY ==
--- NOTE | 2024-01-12 10:05 | MHC.OFFVIS ---
Vital Signs 01/12/24 10:11 Height 6 ft Weight 200 lb BMI 27.1 Intake Visit Reasons: New prob B/L knee LT >RT Intake Note: Syd is a 88 year old male who presents today with two canes for a new problem visit with his son with complaints of bilateral knee pain. Left knee pain is greater than the right knee. He expresses his pain has been on going for about 10 years. When he ambulates he feels as if his knees are going to give out on him. His pain is at its worse when he is standing for prolonged time. He is unable to do desired activities around the house due to his bilateral knee pain. He utilizes two canes to assist with ambulation. He denies recent injury, numbness and tingling. Accompanied by: Son Allergies No Known Allergies Allergy (Verified 01/12/24 10:11) Medication List - Last Reconciled 01/12/24 by Nevin Diaz PA-C [Raised toilet seat As directed] [SHOWER CHAIR As directed] timolol maleate 0.5% 1 drp ophthalmic (eye) QAM walker Folding Front wheeled walker HPI HPI New prob B/L knee LT >RT: Details: 88-year-old male who presents to the office today with 2 canes and his son for an evaluation of bilateral knee pain for 10 years. He states he has bilateral knee pain that is worse on his left knee. His pain is aggravated with prolonged standing as well as at night and his pain makes him unable to perform his desired activities around his house. He also experiences as if his knees will give out with ambulation. He is taking Tylenol for his pain. He is working on physical therapy for his knees. He has a history of left JENA on 01/18/[address] Pineda. He has a history of prediabetes. Her A1c is 6.5%. [facility] Medical History History of diet-controlled diabetes History of basal cell cancer Murmur PND (post-nasal drip) DENISSE (obstructive sleep apnea) Osteoarthritis of left hip Glaucoma Surgical History Hx of colonoscopy History of nasal surgery S/P left knee arthroscopy H/O hernia repair Social History Household Members: Family Household Members Other:: adult grandson Housing: House Are you a primary congregational care pastor to a significant other at home: No Do you presently have visiting nurse or other home services: Yes Patient Tobacco Use Status: Former Tobacco user Tobacco use type: Cigarette e-Cigarette/Vaping Use: Never Used Second Hand Smoke Exposure: No service: No Current occupational status: retired Review of Systems Const All systems reviewed & are unremarkable except as noted in HPI and below Physical Exam Vital Signs: BMI result Body Mass Index 27.1 Extrem Other: Bilateral knee: Skin intact, no erythema or joint effusion. Tenderness along the medial and lateral joint line. Full ROM with crepitus. Negative Wing?s. No ligamentous laxity. NVI. Office Procedures Joint Injection/Drain Joint Injection/Drain Primary Site: right knee Secondary Site: left knee Prep: site was prepped using aseptic technique, ethochloride spray was applied and injection warnings given Injected: 40 mg of, DepoMedrol, with 8 mL of, 1% plain lidocaine and in the joint Approach Used: anterolateral Procedure: The patient tolerated the procedure well and there was some relief with the local anesthesia Coding 54838 - Glenohumeral/Tronchanteric Bursa/Intraarticular Procedure code (CPT) selection complete Results Reviewed Results Reviewed: Xrays were obtained in the office today and personally reviewed by me of ismael knee show severe tricompartmental oa Assessment & Plan Assessment & Plan (1) Bilateral knee pain: Code(s): M25.561 - Pain in right knee; M25.562 - Pain in left knee Category: Medical Qualifiers: Chronicity: chronic Qualified Code(s): M25.561 - Pain in right knee; M25.562 - Pain in left knee; G89.29 - Other chronic pain Plan We discussed options today, which include steroid injection. The patient did consent to move forward with the bilateral knee injection, which was tolerated well. I recommended rest, ice, and elevation and OTC anti-inflammatories as needed for discomfort. We also discussed diabetes and the effect the steroid injection can have on their blood glucose levels; therefore, they will continue to monitor these very closely over the next 72 hours. If there are concerns, they should report to the ED immediately. Orders: Orders XR knee RT 3V 01/12/24 M17.11 - Unilateral primary osteoarthritis, right knee XR knee LT 3V 01/12/24 M25.562 - Pain in left knee PT Evaluation and Treatment 01/12/24 M25.561 - Pain in right knee, M25.562 - Pain in left knee Patient Instructions: Scribed for Nevin Diaz PA-C, by Javid Williamson medical technologist clinical, on 01/12/2024 at 9:45 AM EST.? I, Nevin Diaz PA-C, have personally reviewed and agree with the information entered by the scribe. Coding Level of Care Code Est Pt Level 3 (83084) Diagnoses Chronic pain of both knees M25.561; M25.562; G89.29 Chronicity: chronic CPT Codes Coding - Joint 7: 93302 - Glenohumeral/Tronchanteric Bursa/Intraarticular ([id number])
[2024-01-12 10:11] VITALS: BMI 27.1
== END 2024-01-12 11:00 | disposition home or self-care (01) ==
PROVIDERS: PCP Internal Medicine; Visit Provider Physician Assistant
DX: M25.561 Pain in right knee (principal); M25.562 Pain in left knee; G89.29 Other chronic pain
CPT/HCPCS: 20610; 99214